=== PATIENT | female | born 1955 | race Caucasian/White ===

== ENCOUNTER → 2018-05-12 | Outpatient (CLI) | payer OTHER ==
[2018-05-12 14:33] LABS: ALT 61 U/L (9-52); AST 35 U/L (14-36); Albumin 4.5 g/dL (3.5-5.0); Alkaline Phosphatase 117 U/L (38-126); Anion Gap 11 mmol/L; Blood Urea Nitrogen 18 mg/dL (7-17); Calcium 10.3 mg/dL (8.4-10.2); Carbon Dioxide 27 mmol/L (22-30); Chloride 101 mmol/L (98-107); Glucose 81 mg/dL (74-99); Potassium 4.1 mmol/L (3.5-5.1); Sodium 139 mmol/L (137-145); Total Bilirubin 0.6 mg/dL (0.2-1.3); Total Protein 7.6 g/dL (6.3-8.2)
[2018-05-12 14:35] LABS: HCT 48.7 % (34.0-46.0); HGB 15.8 gm/dL (11.4-16.0); MCH 29.7 pg (25.0-35.0); MCHC 32.4 g/dL (31.0-37.0); MCV 91.7 fL (80.0-100.0); Mean Platelet Volume 6.3; Platelet Count 372 k/uL (150-450); RBC 5.31 m/uL (3.80-5.40); WBC 8.4 k/uL (3.8-10.6)
[2018-05-12 14:41] LABS: INR 0.9 (<1.2); Partial Thromboplastin Time 22.9 sec (22.0-30.0); Prothrombin Time 9.6 sec (9.0-12.0)
[2018-05-12 15:18] LABS: Amorphous Sediment,Urine Few /hpf; Appearance,Urine Cloudy (Clear); Bacteria,Urine Occasional /hpf; Bilirubin,Urine Negative (Negative); Blood,Urine Negative (Negative); Color,Urine Yellow; Glucose,Urine (UA) Negative (Negative); Hyaline Casts,Urine 4 /lpf (0-2); Ketones,Urine Negative (Negative); Leukocyte Esterase,Urine Large (Negative); Mucus,Urine Occasional /hpf; Nitrite,Urine Positive (Negative); Protein,Urine Negative (Negative); RBC,Urine 7 /hpf (0-5); Specific Gravity,Urine 1.018 (1.001-1.035); Squamous Epithelial Cell,Urine 14 /hpf (0-4); Urobilinogen,Urine <2.0 mg/dL (<2.0); WBC,Urine 81 /hpf (0-5)
== END | disposition home or self-care (01) ==
LOC: LABPAT 13:13
PROVIDERS: ATTEND Orthopaedic Surgery
DX: Z01.812 Encounter for preprocedural laboratory examination (principal)
CPT/HCPCS: 36415; 80053; 81001; 85027; 85610; 85730; 87070

== ENCOUNTER 2018-05-29 11:01 | Inpatient (IN) | payer OTHER ==
[~2018-05-29 11:01] MED LIST: ACETAMINOPHEN TAB 500 MG TAB PO ONE; CLINDAMYCIN 900 MG in DEXTROSE 5% IN WATER 50 ML IVPB ONE; DEXAMETHASONE SOD PHOSPHATE 10 MG/ML 1 ML VIAL IV ONE; HYDROmorphone 0.5 MG/0.5 ML SYRINGE IVP PRN; MORPHINE SULFATE 4 MG/ML SYRINGE IV PRN; ONDANSETRON 4 MG/2 ML VIAL IVP ONE; TRANEXAMIC ACID 1,000 MG in SODIUM CHLORIDE 0.9% 100 ML IVPB ONE
[2018-05-29] MEDS: MELOXICAM 7.5 MG TAB PO ONE ×2 (14:31→18:34)
[2018-05-29] MEDS: LACTATED RINGERS 1,000 ML IV SCH ×2 (14:43→18:34)
[2018-05-29] MEDS ORDERED: ONDANSETRON 4 MG/2 ML VIAL IVP ONE (14:44)
[2018-05-29] MEDS ORDERED: DEXAMETHASONE SOD PHOSPHATE 10 MG/ML 1 ML VIAL IV ONE (14:45)
[2018-05-29] MEDS ORDERED: MIDAZOLAM (PF) 2 MG/2 ML VIAL IVP ONE (15:18)
[2018-05-29] MEDS ORDERED: fentaNYL (PF) 50 MCG/ML 2 ML AMP IVP ONE (15:18)
[2018-05-29] MEDS ORDERED: MAGNESIUM HYDROXIDE 2,400 MG/10 ML CUP PO PRN (15:24)
[2018-05-29] MEDS ORDERED: NALOXONE 0.4 MG/ML 1 ML VIAL IV PRN (15:24)
[2018-05-29] MEDS ORDERED: HYDROmorphone 0.5 MG/0.5 ML SYRINGE IVP PRN ×2 (15:24)
[2018-05-29] MEDS ORDERED: HYDROcodone/APAP 5-325MG 1 EACH TAB PO PRN (15:24)
[2018-05-29] MEDS ORDERED: HYDROmorphone 1 MG/ML 1 ML SYRINGE IVP PRN (15:24)
[2018-05-29] MEDS ORDERED: ONDANSETRON 4 MG/2 ML VIAL IVP PRN (15:24)
[2018-05-29] MEDS ORDERED: NA PHOS,M-B/NA PHOS,DI-BA 133 ML ENEMA RECTAL PRN (15:24)
[2018-05-29] MEDS ORDERED: DIAZEPAM 5 MG TAB PO PRN (15:24)
[2018-05-29] MEDS ORDERED: BISACODYL 10 MG SUPP RECTAL PRN (15:24)
[2018-05-29] MEDS ORDERED: SODIUM CHLORIDE 0.9% 1,000 ML IV SCH (15:30)
[2018-05-29] MEDS ORDERED: ePHEDrine SULFATE/0.9% NACL/PF 50 MG/5 ML SYRINGE IV ONE (15:38)
[2018-05-29] MEDS ORDERED: MIDAZOLAM 2 MG/2 ML VIAL ONE (15:38)
[2018-05-29] MEDS ORDERED: PROPOFOL 10 MG/ML 20 ML VIAL IV ONE (15:38)
[2018-05-29] MEDS ORDERED: TRANEXAMIC ACID 1,000 MG/10 ML VIAL ONE (15:38)
[2018-05-29] MEDS ORDERED: SODIUM CHLORIDE 0.9% 100 ML BAG ONE (15:38)
[2018-05-29] MEDS ORDERED: ROPIVACAINE 1,100 MG, SODIUM CHLORIDE 0.9% 500 ML 330 ML MISCELLANE PRN ×2 (15:42)
--- NOTE | 2018-05-29 15:44 | P.ONQ ---
Anesthesiology Proc Note - PNB - Peripheral Nerve Block Performed Right Adductor Canal Infusion Time Out Performed: Yes Procedure Start Time: 15:18 Procedure Stop Time: 15:30 Indication: Acute Post-Operative Pain, Requested by physician (Dr Hernandez) Sedation Type: Sedate with meaningful contact maintained Preparation: Sterile Dressing Position: Supine Catheter: Indwelling Needle Types: On-Q Needle Size: 100mm (4") Needle Gauge: 20 Technique: Ultrasound (Image saved) Injectate: 0.5% Ropivacaine (see comment for volume) (30 mls) Blood Aspirated: No Pain Paresthesia on Injection Noted: No Resistance on Injection: Normal Events: Uneventful and Well Tolerated
[2018-05-29] MEDS: CLINDAMYCIN 900 MG in DEXTROSE 5% IN WATER 50 ML IVPB SCH ×4 (15:48→23:39)
[2018-05-29] MEDS ORDERED: ROPIVACAINE 246.25 MG, EPINEPHrine 0.5 MG, KETOROLAC 30 MG, cloNIDine HCL/PF 80 MCG, WA... MISCELLANE ONE ×5 (16:15)
[2018-05-29] MEDS ORDERED: LACTATED RINGERS 1,000 ML IV ONE (16:17)
--- NOTE | 2018-05-29 17:00 | P.OP ---
Date of Procedure: 05/29/18 Preoperative Diagnosis: Severe osteoarthritis right knee Postoperative Diagnosis: Severe osteoarthritis right knee Procedure(s) Performed: Right total knee arthroplasty Implants: White and Nephew Journey II CR Oxinium cruciate retaining femoral component size 5, right White & Nephew Journey right nonporous tibial baseplate size 4 White & Nephew Journey II, XLPE Deep Dished articular insert, size 11 mm, Size 3-4 right White & Nephew Journey BCS resurfacing oval patellar component, 29 mm All components were cemented using Palacos R bone cement.. The articulation is Oxinium on polyethylene. Anesthesia: spinal Surgeon: Yefri Hernandez Excel Analyst #1: Sabine Carson Estimated Blood Loss (ml): 25 Pathology: other (Bone and cartilage) Condition: stable Disposition: PACU Indications for Procedure: After failure of conservative treatment we discussed the surgical and nonsurgical treatment options at length. Patient wishes to proceed with a total knee arthroplasty. Complications specific to this procedure were discussed at length, including but not limited to infection, bleeding, stiffness, and nerve injury. Patient is aware of all these complications and informed consent was obtained Operative Findings: The operative findings are consistent with severe osteoarthritis of the right knee Description of Procedure: Patient was seen in the preoperative area consent was reviewed and operative site was marked with a skin marker. An adductor canal pain catheter was placed by anesthesia in the preoperative area. Patient was then brought to the opera ting room and given preoperative antibiotics intravenously. A spinal anesthetic was administered by the anesthesia department. A tourniquet was placed on the upper thigh and the lower extremity was prepped and draped in usual sterile fashion. A gram of transexamic acid was given. A universal timeout was then performed which confirmed the patient's name, surgical site, ALLERGIES, and consent. The lower extremity was then exsanguinated and tourniquet was inflated to 300 mmHg. A standard and anterior midline approach to the knee was performed. The skin and subcutaneous tissue was dissected down to the patellar tendon. A medial parapatellar arthrotomy was then performed. The knee was then extended, the patellar was everted, and the knee was again flexed. Anterior horns of both menisci were excised, and a release was performed to the posterior medial aspect of the knee. On gross visual inspection, there was complete loss of articular cartilage in the medial and patellofemoral joint spaces. There was also significant cartilage damage in the lateral compartment. There were multiple periarticular osteophytes which were then removed with a Ronguer. The femoral canal was then opened with the appropriate drill, and the intramedullary femoral cutting guide was then placed and set for 5 of valgus. The distal femoral cutting block was then pinned in place, and the distal femur was then cut. The cutting block was then removed and the cut was checked for flatness. Next, the sizing guide was then placed and set for 3 external rotation based off of the epicondylar axis and Whitesides line. After the femur was sized, the appropriate 4-in-1 cutting block was then pinned in place. The anterior condyles were cut without notching. The posterior and chamfer cuts were perfo rmed while protecting the collateral ligaments. The cutting block was then removed, and the femoral canal was plugged with autologous bone. Attention was then directed to the tibia. The remaining ACL was removed with a Ronguer, and the tibia was then gently subluxed forward with a large bent knee retractor. Any remaining menisci was excised. The posterior lateral corner was cauterized in order to cauterize the lateral geniculate artery. The extra medullary tibial cutting guide was then placed, set for the appropriate rotation, slope, and depth of resection. The proximal tibia cutting guide was then pinned in place. Proximal tibia was then cut and sized. Next trials were then placed with the appropriate-sized insert. The knee was able to fully extend and flex to 130 and was stable throughout all range of motion. The knee was then extended, patella everted. Patella was then measured, and then using an osteotomy guide, the patella was cut at the appropriate level. The patella was then measured and drilled and the patella trial was then placed. The knee was then taken through range of motion with the patella trial and the patella tracked normally. The knee was then extended patella trial was then removed and the patella was everted. Knee was then flexed and lug holes were drilled through the femoral trial and the femoral trial was then removed. The tibial was then exposed, and the tibial broach guide was then pinned in place after it was set for the appropriate rotation to allow for the most coverage without overhang. The tibia was then reamed and broached. The cut surfaces of bone were then irrigated with pulsatile lavage. The posterior structures were injected with the ropivacaine solution. The knee was also irrigated with Irrisept solution. The components were then opened, the cement was mixed, and the components were then cemented in place. The cement was allowed to harden with the knee in full extension. While the cement was hardening, the remaining soft tissues were then injected with a ropivacaine solution, which consisted of 246.25 mg of ropivacaine, 0.5 mg of epinephrine, 30 mg of Toradol, 80 g of clonidine, and 48.45 mL of sterile water, for a total of 100 mL of fluid injected. After the cemented hardened. The tourniquet was released, and hemostasis was obtained. A second gram of transexamic acid was given. The knee was again irrigated. The knee was again taken through range of motion and found to be stable throughout all range of motion of 0-130, and the patella tracked normally. The fascia was then closed with #2 strata fix suture. The subcutaneous tissue was closed with 3-0 Vicryl and 3-0 strata fix. Dermabond glue was used for the skin and placed with the knee in flexion. The patient was placed in a sterile silver dressing. Patient was then transferred to recovery room in stable condition. The department assistant KIKI Antonio was required due the complexity surgery and the need for a skilled surgical services coordinator. She assisted in positioning, draping, retraction, and closure of the wound.
--- NOTE | 2018-05-29 18:01 | XR ---
EXAMINATION TYPE: XR knee limited RT DATE OF EXAM: 05/29/2018 COMPARISON: NONE HISTORY: Postop knee surgery TECHNIQUE: 2 views FINDINGS: There is a right knee prosthesis. Components are in anatomic position. IMPRESSION: No complicating process seen.
[2018-05-29 19:26] VITALS: BMI 39.1
[2018-05-29] MEDS: SENNOSIDES-DOCUSATE SODIUM 1 EACH TAB PO SCH (22:11)
[2018-05-29] MEDS: ASPIRIN 325 MG TAB PO SCH (22:11)
--- NOTE | 2018-05-30 05:34 | P.PN ---
Progress Note - Text Progress Note Date: 05/30/18 62 yo female status post right total knee replacement. Patient received adductor canal catheter. Ropivacaine 0.2% at 8 mls/hr. Patient was seen this morning, sitting in bed comfortably. VAS score of 0/10, no complaints overnight. Assessment and plan: patient will be sent home with the adductor canal pump. Adequate pain control.
--- NOTE | 2018-05-30 07:29 | CONS ---
CONSULTATION DATE OF CONSULTATION: 05/29/2018 REASON FOR CONSULTATION: Medical management requested by Dr. Mackenzie. CONSULTATION: This is a pleasant 62-year-old patient of Dr. Mackenzie who has had progressive arthritis in the knees. He has tried medications, really did not help. It progressed to get worse. It was worse with activity, better with rest. Pain is pretty much localized to the knee, did not radiate. Finally decided to proceed with surgery. Today underwent right total knee arthroplasty. Postprocedure pain is well controlled. No nausea, vomiting, or dizziness. Did tolerate some supper. No chest pain or short of breath. REVIEW OF SYSTEMS: CONSTITUTIONAL: None. HEENT: None. RESPIRATORY: None. CARDIOVASCULAR: None. GASTROINTESTINAL: None. GENITOURINARY: None. MUSCULOSKELETAL: Arthritic pain in joints. DERMATOLOGICAL: None. HEMATOLOGIC: None. LYMPHATIC: None. PSYCHIATRY: None. NEUROLOGICAL: None. PAST MEDICAL HISTORY: Hypertension, primary osteoarthritis, recent UTI. PAST SURGICAL HISTORY: Tubal ligation, bilateral thumb joint replacement, left total knee. SOCIAL HISTORY: Does not smoke or drink alcohol. . Retired from factory. FAMILY HISTORY: Family history of brain cancer. HOME MEDICATIONS: 1. Whittaker-3 one tablet p.o. daily. 2. Macrobid 100 mg p.o. q.12. 3. Multivitamin 1 tablet p.o. daily. 4. Hydrochlorothiazide 50 mg p.o. daily. 5. Vitamin D2, 50,000 units on Tuesday and Tuesday. 6. Vitamin D3, 2000 units. 7. Calcium 600 mg p.o. daily. 8. Aspirin 81 mg a day. ALLERGIES: Allergies to AUGMENTIN, SULFA. PHYSICAL EXAMINATION: On examination, temperature 98.7, pulse 115, respirations 16, blood pressure 147/77, pulse ox 96% on room air; GENERAL APPEARANCE: Well built, BMI 38.7. Sitting up, comfortable. EYES: Pupils equal. Conjunctivae normal. HENT: External appearance of nose and ears normal. Oral cavity normal. NECK: JVD not raised. Mass not palpable. RESPIRATORY: Effort normal. LUNGS: Fair entry. CARDIOVASCULAR: First and second sounds normal. No edema. ABDOMEN: Soft, nontender. Liver and spleen not palpable. LYMPHATIC: No lymph node palpable in the neck or axillae. PSYCHIATRY: Alert and oriented x3. Mood and affect normal. NEUROLOGICAL: Pupils equal. Cranial nerves grossly intact. Power and sensation grossly intact. MUSCULOSKELETAL: Dressing over the right knee. evidence of OA especially in the hands. INVESTIGATIONS: Lab work from 05/12/2018 shows a white count 8.4, hemoglobin 15.8, potassium 4.1, creatinine 0.7. ASSESSMENT: 1. Right total knee arthroplasty. 2. Primary osteoarthritis. 3. Essential hypertension takes diuretics. 4. Primary osteoarthritis. 5. Obesity, body mass index 38.7. 6. Tachyarrhythmia exact type unknown. PLAN: The patient for DVT prophylaxis on aspirin. Pain control is in place. Getting some IV fluids. Will DC the same as blood pressure is tending to run a bit on the higher side. We will get an EKG to see if there is underlying arrhythmia versus sinus tachycardia. The patient states that she has had increased heart rate in the past. Care was discussed with the patient. Questions were answered. Thank you Dr. Hernandez. DANAL / JANIN: [id number] /
[2018-05-30 08:04] LABS: Basophils % (A) 0 %; Eosinophils % (A) 0 %; HCT 38.7 % (34.0-46.0); Lymphocytes # (A) 1.4 k/uL (1.0-4.8); Lymphocytes % (A) 12 %; MCH 29.8 pg (25.0-35.0); MCHC 32.4 g/dL (31.0-37.0); MCV 92.2 fL (80.0-100.0); Mean Platelet Volume 6.2; Monocytes # (A) 0.7 k/uL (0-1.0); Monocytes % (A) 6 %; Neutrophils # (A) 9.4 k/uL (1.3-7.7); Neutrophils % (A) 81 %; Platelet Count 247 k/uL (150-450); RDW 14.3 % (11.5-15.5); WBC 11.6 k/uL (3.8-10.6)
[2018-05-30 08:11] LABS: HGB 12.5 gm/dL (11.4-16.0)
[2018-05-30] MEDS: ASPIRIN 325 MG TAB PO SCH ×2 (09:05→20:02)
[2018-05-30] MEDS: MELOXICAM 7.5 MG TAB PO SCH (09:05)
--- NOTE | 2018-05-30 09:40 | P.DS ---
Providers Date of admission: 05/29/18 13:54 Expected date of discharge: 05/30/18 Attending physician: Yefri Hernandez Consults: 05/29/18 15:24 Consult Physician Routine Consulting Provider: Andrei Laws Consult Reason/Comments: medical management Do you want consulting provider notified?: Yes 05/30/18 06:00 Consult Physician Routine Consulting Provider: Rio Ace Consult Reason/Comments: Tachycardia Do you want consulting provider notified?: Yes, Notify in am Primary care physician: Elvin Mackenzie - Discharge Diagnosis(es) (1) Osteoarthritis of right knee Current Visit: Yes Status: Acute (2) S/P total knee arthroplasty Current Visit: Yes Status: Acute Hospital Course: This is a 62-year-old female with known history of degenerative arthritis of the right knee. The patient presents for evaluation. After discussion and consideration patient elects to proceed with total knee arthroplasty. The patient is seen preoperatively by Dr. Hernandez and medically cleared for surgery by their primary care physician. Patient is admitted to [facility] on 05/29/2018 for total knee arthroplasty. The procedures performed without complication or sequelae. The patient is doing well postoperatively. Labs and vital signs are stable on day of discharge. On day of discharge patient's knee incision is healing well. There is minimal erythema. There is no drainage noted at this time. There is minimal soft t issue swelling to the knee. Patient has full foot and ankle motion without difficulty or pain. Calf is soft and nontender to palpation. Neurovascular status to the right lower extremity is intact. Patient is discharged home in good condition. Opioid start talking form is reviewed and signed at patient bedside. Please see med rec for accurate list of home medications. Plan - Discharge Summary Discharge Rx Participant: No New Discharge Prescriptions: New Aspirin 325 mg PO BID #60 tab HYDROcodone/APAP 5-325MG [Jefferson 5-325] 1 - 2 tab PO Q6HR PRN #56 tab PRN Reason: Pain Sennosides [Senokot] 1 tab PO BID #60 tablet No Action Hydrochlorothiazide [Hydrodiuril] 50 mg PO DAILY Aspirin [Adult Low Dose Aspirin EC] 81 mg PO DAILY Nitrofurantoin Monohyd/M-Cryst [Macrobid] 100 mg PO Q12HR Ergocalciferol [Vitamin D2] 50,000 unit PO WESA Multivitamins, Thera [Multivitamin (formulary)] 1 tab PO DAILY Cholecalciferol (Vitamin D3) [Vitamin D3] 2,000 unit PO SUMOTUTHFR Calcium Carbonate [Calcium] 600 mg PO DAILY [place] 3 (Unknown Dose) 1 tab PO DAILY Discharge Medication List Aspirin [Adult Low Dose Aspirin EC] 81 mg PO DAILY 05/22/18 [History] Calcium Carbonate [Calcium] 600 mg PO DAILY 05/22/18 [History] Cholecalciferol (Vitamin D3) [Vitamin D3] 2,000 unit PO SUMOTUTHFR 05/22/18 [History] Ergocalciferol [Vitamin D2] 50,000 unit PO WESA 05/22/18 [History] Hydrochlorothiazide [Hydrodiuril] 50 mg PO DAILY 05/22/18 [History] Multivitamins, Thera [Multivitamin (formulary)] 1 tab PO DAILY 05/22/18 [History] Nitrofurantoin Monohyd/M-Cryst [Macrobid] 100 mg PO Q12HR 05/22/18 [History] [place] 3 (Unknown Dose) 1 tab PO DAILY 05/22/18 [History] Aspirin 325 mg PO BID #60 tab 05/30/18 [Rx] HYDROcodone/APAP 5-325MG [Jefferson 5-325] 1 - 2 tab PO Q6HR PRN #56 tab 05/30/18 [Rx] Sennosides [Senokot] 1 tab PO BID #60 tablet 05/30/18 [Rx] Follow up Appointment(s)/Referral(s): Yefri Hernandez DO [Doctor of Osteopathic Medicine] - 2 Weeks Ambulatory/Diagnostic Orders: Continuous Passive Motion (CPM) Machine [DME.AMB1] Time Frame: 3 Weeks, Location: None Selected Activity/Diet/Wound Care/Special Instructions: Weightbearing as tolerated with a walker. CPM 5-6h daily. Leave dressing intact. May be removed by home care nurse or by patient in 10 days. May shower with dressing on. Please follow up with [facility] and call with any questions or concerns, . Discharge Disposition: HOME WITH HOME HEALTH SERVICES
[2018-05-30] MEDS: LACTATED RINGERS 1,000 ML IV SCH (14:57)
[2018-05-30] MEDS: HYDROcodone/APAP 5-325MG 1 EACH TAB PO PRN (17:22)
[2018-05-30] MEDS: SENNOSIDES-DOCUSATE SODIUM 1 EACH TAB PO SCH (20:01)
[2018-05-31 04:05] VITALS: RESP 14
[2018-05-31] MEDS: HYDROcodone/APAP 5-325MG 1 EACH TAB PO PRN (04:31)
[2018-05-31] MEDS: hydrOXYzine PAMOATE 25 MG CAP PO PRN ×2 (04:32→10:11)
[2018-05-31] MEDS: ASPIRIN 325 MG TAB PO SCH (07:24)
[2018-05-31] MEDS: MELOXICAM 7.5 MG TAB PO SCH (07:24)
--- NOTE | 2018-05-31 07:48 | PN ---
PROGRESS NOTE DATE OF SERVICE: 05/30/2018 PRESENTING COMPLAINT: Knee surgery. INTERVAL HISTORY: Patient is status post right total knee arthroplasty. Pain is better controlled. Did tolerate some therapy. No nausea, vomiting. Did tolerate some diet. Did work with therapy. REVIEW OF SYSTEMS: Done for constitutional, cardiovascular, GI, pulmonary; relevant findings above. CURRENT MEDICATIONS: Current medications are reviewed. PHYSICAL EXAMINATION: On examination, temperature 98.7 pulse 98, respirations 12, blood pressure 128/73, pulse ox 96% on room air. GENERAL APPEARANCE: Sitting up comfortable. EYES: Pupils equal. Conjunctivae normal. NECK: JVD not raised. Mass not palpable. RESPIRATORY: Effort . Lungs are clear. CARDIOVASCULAR: First and second sounds normal. No edema. ABDOMEN: Soft, nontender. Liver and spleen not palpable. PSYCHIATRY: Alert and oriented x3. Mood and affect normal. INVESTIGATIONS: White count 11.6, hemoglobin 12.5. ASSESSMENT: 1. Right total knee arthroplasty. 2. Primary osteoarthritis. 3. Essential hypertension. 4. Obesity, body mass index 38.7. 5. sinus tachycardia, chronic, cause undetermined. PLAN: Continue current medication and treatment plan. Care was discussed with the patient and family at the bedside. MMODL / IJN: [id number] /
[2018-05-31 08:38] VITALS: BP 120/71; PULSE 105; TEMP 98.3
[2018-05-31] MEDS ORDERED: HYDROcodone/APAP 7.5-325MG 1 EACH TAB PO PRN ×2 (09:06)
[2018-05-31] MEDS ORDERED: HYDROcodone/APAP 5-325MG 1 EACH TAB PO PRN ×2 (09:23→09:24)
[2018-05-31] MEDS ORDERED: KETOROLAC 30 MG/ML 1 ML VIAL IVP SCH (12:00)
--- NOTE | 2018-05-31 13:18 | CONS ---
CONSULTATION DATE OF SERVICE: 05/30/2018 Mrs. Hagen is a 62-year-old female who is seen for cardiac evaluation. This patient's medical records reviewed. She is a 62-year-old female who underwent knee surgery. During the night, patient was noticed to have sinus tachycardia. Patient is otherwise feeling well. She denies any shortness of breath or chest discomfort. The patient's hemoglobin has remained stable and no temperature is noted. The patient gives a history that she has a tendency to run the slightly higher rate. The patient's heart rate this morning was in the range of 100 to 110. PAST MEDICAL HISTORY: Past medical history includes history of hypertension. HOME MEDICATIONS: Home medications include the Macrobid, omega-3, and aspirin. PHYSICAL EXAMINATION: Physical examination at present reveals a 62-year-old female who does not appear to be in any acute distress. Patient's heart rate is 100 per minute. Head/ENT examination is negative. Neck is supple. There is no increase in jugular venous pressure. Both the carotid pulses are felt. There is no bruit. Chest is symmetrical. HEART: The PMI is not felt. First and second heart sounds are normal. Lungs are clinically clear to auscultation and percussion. Abdomen is negative. EXTREMITIES: Peripheral pulsations are 2+. EKG shows normal sinus rhythm with sinus tachycardia. Patient's hemoglobin is 12.5. FINAL IMPRESSION: This patient has evidence of sinus tachycardia, the exact etiology undetermined. Patient is not in any acute respiratory distress. Her hemoglobin is stable and patient is afebrile. Possibly it could be mild hypovolemia. We will recommend to continue the IV fluids at 100 mL/hour. Echo and Doppler study will be done. MMODL / IJN: [id number] /
--- NOTE | 2018-06-01 00:12 | PN ---
PROGRESS NOTE DATE OF SERVICE: 05/31/2018 PRESENTING COMPLAINT: Knee surgery. INTERVAL HISTORY: Patient is status post right knee arthroplasty, comfortable. Sitting up, tolerating a diet. Did work with therapy. No new issues. Seen by Cardiology. REVIEW OF SYSTEMS: Done for constitutional, cardiovascular, GI, pulmonary; relevant findings as above. CURRENT MEDICATIONS: Reviewed. PHYSICAL EXAMINATION: VITAL SIGNS: Temperature 98.3, pulse 105, respiration 14, blood pressure 120/71, pulse ox 92 percent on room. GENERAL APPEARANCE: Lying in bed, comfortable. EYES: Pupils are equal. Conjunctivae normal. NECK: JVD not raised. Mass not palpable. RESPIRATORY: Effort normal. LUNGS: Are clear. CARDIOVASCULAR: 1st and 2nd sounds normal. No edema. ABDOMEN: Soft, nontender. Liver and spleen not palpable. PSYCHIATRY: Alert and oriented x3. Mood and affect normal. INVESTIGATIONS: No blood work from today. ASSESSMENT: 1. Right total knee arthroplasty. 2. Primary osteoarthritis. 3. Essential hypertension. 4. Obesity, BMI 38.7. 5. Chronic sinus tachycardia, cause undetermined. PLAN: Patient is seen by Cardiology. Other medication and treatment plan to continue. MMODL / IJN: [id number] /
== END 2018-05-31 13:43 | disposition home health service (06) | DRG 470 ==
LOC: 2ORMAIN 13:54 → 4SSUR 17:32
PROVIDERS: ADMIT Orthopaedic Surgery; ATTEND Orthopaedic Surgery
PROC: 0SRC069 Replacement of Right Knee Joint with Oxidized Zirconium on Polyethylene Synthetic Substitute, Cemented, Open Approach (ICD-10-PCS; principal; 2018-05-29 16:15)
DX: M17.0 Bilateral primary osteoarthritis of knee (principal); I10 Essential (primary) hypertension; E66.9 Obesity, unspecified; Z68.38 Body mass index [BMI] 38.0-38.9, adult; R00.0 Tachycardia, unspecified; Z79.82 Long term (current) use of aspirin; Z79.899 Other long term (current) drug therapy; Z98.51 Tubal ligation status; Z96.652 Presence of left artificial knee joint; Z96.698 Presence of other orthopedic joint implants; Z87.440 Personal history of urinary (tract) infections; Z88.2 Allergy status to sulfonamides; Z80.8 Family history of malignant neoplasm of other organs or systems; Z83.3 Family history of diabetes mellitus; Z82.49 Family history of ischemic heart disease and other diseases of the circulatory system
CPT/HCPCS: 84443; 85025; 88300; 93005

== ENCOUNTER → 2020-11-07 | Outpatient (CLI) | payer MEDICARE ==
[2020-11-07 09:27] LABS: HCT 47.4 % (34.0-46.0); HGB 16.1 gm/dL (11.4-16.0); MCH 32.8 pg (25.0-35.0); MCHC 33.9 g/dL (31.0-37.0); MCV 96.8 fL (80.0-100.0); Mean Platelet Volume 6.7; Platelet Count 293 k/uL (150-450); RDW 13.6 % (11.5-15.5); WBC 7.9 k/uL (3.8-10.6)
[2020-11-07 09:33] LABS: Appearance,Urine Cloudy (Clear); Bacteria,Urine Moderate /hpf; Bilirubin,Urine Negative (Negative); Blood,Urine Negative (Negative); Color,Urine Yellow; Glucose,Urine (UA) Negative (Negative); Hyaline Casts,Urine 1 /lpf (0-2); Ketones,Urine Negative (Negative); Leukocyte Esterase,Urine Large (Negative); Mucus,Urine Occasional /hpf; Nitrite,Urine Positive (Negative); PH, Urine 5.5 (5.0-8.0); Protein,Urine Negative (Negative); RBC,Urine 2 /hpf (0-5); Specific Gravity,Urine 1.017 (1.001-1.035); Squamous Epithelial Cell,Urine 3 /hpf (0-4); Urobilinogen,Urine <2.0 mg/dL (<2.0); WBC,Urine 27 /hpf (0-5)
[2020-11-07 09:34] LABS: ALT 28 U/L (4-34); AST 27 U/L (14-36); African American GFR (CKD) >90 (>60 ml/min/1.73 sqM); Albumin 4.5 g/dL (3.5-5.0); Alkaline Phosphatase 108 U/L (38-126); Anion Gap 10 mmol/L; Blood Urea Nitrogen 21 mg/dL (7-17); Calcium 9.7 mg/dL (8.4-10.2); Carbon Dioxide 27 mmol/L (22-30); Chloride 104 mmol/L (98-107); Glucose 106 mg/dL (74-99); Non-African American GFR(CKD) >90 (>60 ml/min/1.73 sqM); Potassium 3.9 mmol/L (3.5-5.1); Sodium 141 mmol/L (137-145); Total Bilirubin 0.6 mg/dL (0.2-1.3); Total Protein 7.1 g/dL (6.3-8.2)
[2020-11-07 09:46] LABS: INR 0.9 (<1.2); Partial Thromboplastin Time 22.2 sec (22.0-30.0); Prothrombin Time 9.8 sec (9.0-12.0)
== END | disposition home or self-care (01) ==
LOC: LABPAT 08:49
PROVIDERS: ATTEND Orthopaedic Surgery
DX: Z01.812 Encounter for preprocedural laboratory examination (principal)
CPT/HCPCS: 36415; 80053; 81001; 85027; 85610; 85730; 87070

== ENCOUNTER 2020-11-18 05:40 | Day surgery (SDC) | payer MEDICARE, OTHER ==
[2020-11-11 11:42] VITALS: BMI 35.5
[~2020-11-18 05:40] MED LIST changes: -ACETAMINOPHEN TAB 500 MG TAB PO ONE; +ACETAMINOPHEN TAB 500 MG TAB PO PRN; -CLINDAMYCIN 900 MG in DEXTROSE 5% IN WATER 50 ML IVPB ONE; -DEXAMETHASONE SOD PHOSPHATE 10 MG/ML 1 ML VIAL IV ONE; +GABAPENTIN 300 MG CAP PO PRN; -HYDROmorphone 0.5 MG/0.5 ML SYRINGE IVP PRN; +LIDOCAINE 1% (10MG/ML) FOR IV START INTRADERMA PRN; +MELOXICAM 7.5 MG TAB PO PRN; -MORPHINE SULFATE 4 MG/ML SYRINGE IV PRN; -TRANEXAMIC ACID 1,000 MG in SODIUM CHLORIDE 0.9% 100 ML IVPB ONE; +TRANEXAMIC ACID 1,000 MG in SODIUM CHLORIDE 0.9% 100 ML IVPB PRN; +VANCOMYCIN 1,500 MG in SODIUM CHLORIDE 0.9% 250 ML IVPB PRN
[2020-11-18] MEDS ORDERED: DEXAMETHASONE SOD PHOSPHATE 4 MG/ML 1 ML VIAL IVP ONE (06:21)
[2020-11-18] MEDS: LACTATED RINGERS 1,000 ML IV SCH ×2 (06:21→11:15)
[2020-11-18] MEDS ORDERED: SUCCINYLCHOLINE CHLORIDE 100 MG/5 ML SYR IV ONE (06:52)
[2020-11-18] MEDS ORDERED: SODIUM CHLORIDE 0.9% 100 ML BAG ONE (06:52)
[2020-11-18] MEDS ORDERED: PHENYLEPHRINE-0.9% NACL SYG 1,000 MCG/10 ML SYRINGE ONE (06:52)
[2020-11-18] MEDS ORDERED: GLYCOPYRROLATE 0.2 MG/ML 2 ML VIAL ONE (06:52)
[2020-11-18] MEDS ORDERED: MIDAZOLAM 2 MG/2 ML VIAL ONE (06:52)
[2020-11-18] MEDS ORDERED: PROPOFOL 10 MG/ML 20 ML VIAL IV ONE (06:52)
[2020-11-18] MEDS ORDERED: HEPARIN SODIUM,PORCINE 10,000 UNIT/ML 1 ML VIAL ONE (06:52)
[2020-11-18] MEDS ORDERED: ePHEDrine SULFATE/0.9% NACL/PF 50 MG/5 ML SYRINGE IV ONE (06:52)
[2020-11-18] MEDS ORDERED: fentaNYL (PF) 50 MCG/ML 2 ML AMP ONE (06:52)
[2020-11-18] MEDS ORDERED: HYDROmorphone (PF) 1 MG/ML ONE (06:52)
[2020-11-18] MEDS ORDERED: TRANEXAMIC ACID 1,000 MG/10 ML VIAL ONE (06:52)
[2020-11-18] MEDS ORDERED: SODIUM CHLORIDE 0.9% IRRIG 1,000 ML BTL IRRIGATION ONE (06:52)
[2020-11-18] MEDS ORDERED: LIDOCAINE 1% INJ 10MG/ML (20 ML MDV) ONE (06:52)
[2020-11-18] MEDS ORDERED: ceFAZolin 1,000 MG in SODIUM CHLORIDE 0.9% 1,000 ML IRRIGATION ONE (07:24)
[2020-11-18] MEDS: ROPIVACAINE/EPI/CLONIDINE/KET 50 ML SYRINGE MISCELLANE PRN ×2 (07:31→08:10)
[2020-11-18] MEDS ORDERED: LACTATED RINGERS 1,000 ML IV ONE (07:48)
--- NOTE | 2020-11-18 08:29 | P.OP ---
Date of Procedure: 11/18/20 Preoperative Diagnosis: Severe osteoarthritis left hip Postoperative Diagnosis: Severe osteoarthritis left hip Procedure(s) Performed: Left total hip arthroplasty with direct anterior approach Implants: [employer] Polarstem standard size 3 [employer] R3, 3 hole hemispherical acetabular shell, 52 mm [employer] Reflection 6.5 mm cancellus screw, 20 mm 2 [employer] R3, XLPE 20 acetabular liner [employer]hew Oxinium femoral head 36 m, +0 All components were press-fit. The articulation is Oxinium on polyethylene. Anesthesia: GETA Surgeon: Yefri Hernandez Calculating Machine Mechanic #1: Sabine Carson Estimated Blood Loss (ml): 120 (65 mL returned with Cell Saver) Pathology: other (Femoral head) Condition: stable Disposition: PACU Indications for Procedure: After failure of conservative treatment we discussed the surgical and nonsurgical treatment options at length. Patient wishes to proceed with a total hip arthroplasty with a direct anterior approach. Complications specific to this procedure were discussed at length, including but not limited to infection, leg length discrepancy, dislocation, nerve injury, and fracture. Covid-19 was also discussed at length with the patient, and they are aware of the current policies and procedures. The patient was given the option of delaying surgery, but they elect to proceed knowing these risks. Patient is aware of all these complications and informed consent was obtained Operative Findings: The operative findings are consistent with severe osteoarthritis of the left hip Description of Procedure: Patient was seen and evaluated in the preoperative area and the consent was reviewed. The operative site was marked with a skin marker. The patient was then brought to the operating room and given preoperative antibiotics intravenously. 1 g of Tranexamic acid was also given intravenously. A general anesthetic was administered by the anesthesia department. The patient was then placed on the [place] table with the bony prominences well-padded. The hip area was then prepped with a ChloraPrep solution and draped in the usual sterile fashion. A universal timeout was then performed, which confirmed the patient's name, surgical site, ALLERGIES, and procedure being performed on the consent. Next the incision site was located at 1 cm distal to the anterior superior iliac spine along the flexion crease of the hip. The skin and subcutaneous tissues were sharply incised. Incision was carefully dissected down to the fascia overlying the tensor fascia kristi muscle. This fascia was then incised in line with the incision. Care was taken to stay laterally in order to avoid injuring the lateral femoral cutaneous nerve. Next, using blunt finger dissection, the tensor fascia kristi muscle was dissected off its investing fascia. The muscle was then carefully retracted laterally with a cobra retractor over the lateral neck of the femur. Next, the circumflex vessels were identified and cauterized using the AquaMantis device. The anterior hip capsule was then exposed. The capsule was then opened and an inverted T fashion. Cobra retractors were then placed intracapsularly. The retractors were maintained intracapsular throughout the procedure. The proximal femur was then visualized. A small amount of traction was placed on the leg. The femoral neck was then osteotomized appropriate level above the lesser trochanter. A small wedge of bone was then removed from the remaining femoral head. Next, using a corkscrew the femoral head was removed from the acetabulum. On gross visual inspection, the femoral head had complete loss of articular cartilage and multiple periarticular osteophytes. The femoral head was then measured. Attention was then turned to the acetabulum. The acetabulum was exposed and any remaining labrum was excised. Sequential reaming of the acetabulum was performed using fluoroscopic guidance until there was a good bed of bleeding cancellus bone. When the appropriate size was reached, a trial was then placed. The position and fit of the trial was checked with fluoroscopy. The trial was then removed. Then, using fluoroscopic guidance, the final implant was impacted at 20 of anteversion and 40 of abduction, and fully seated in the acetabulum. 2 screws were then placed in the acetabulum. Again fluoroscopy was used to check position of the screws. Next, the liner was then impacted, with a 20 elevated liner located in the anterior superior quadrant. Component locking was confirmed. Attention was then directed to the femur. With the aid of the [place] table, the femur was externally rotated to approximately 130, extended, and adducted under the opposite leg. A side hook was then placed under the proximal femur, and the side hook elevator was used to elevate the proximal femur while releasing the capsule. Retractors were then placed. A capsular release was performed, as well as a release of the conjoined tendon, which afforded excellent visualization of the proximal femur. Next, a box osteotome was used to lateralize the proximal femur. A flask handler was then used to locate the femoral canal. Sequential broaching was then performed with appropriate size which afforded excellent fixation in the proximal femur. A trial was then placed with appropriate head and neck, and the hip was gently reduced with the aid of the [place] table. Fluoroscopy was then used to check position of the components, as well as to ensure equal leg lengths. The hip was then gently dislocated and the trials were then removed. Final implants were then impacted and the hip was again reduced. Final fluoroscopic x-rays confirmed that the components were in anatomic position, as well as equal leg lengths. The hip was also taken through range of motion, and found to be stable. The hip was then copiously irrigated with antibiotic solution with pulsatile lavage. The hip was then irrigated with Irrisept solution. The soft tissues were then injected with a ropivacaine solution, which consisted of 246.25 mg of ropivacaine, 0.5 mg of epinephrine, 30 mg of Toradol, 80 g of clonidine, and 48.45 mL of sterile water, for a total of 100 mL of fluid injected. A second dose of 1 g of Tranexamic acid was also given intravenously. Any blood collected by Cell Saver was then returned to the patient at this time. The fascia was then closed with 2-0 strata fix suture. The subcutaneous tissue was closed with 3-0 Vicryl. The subcuticular tissue was closed with 3-0 strata fix suture. The skin was then closed with Exofin skin glue. After the glue and dried, and Optifoam silver impregnated dressing was applied. The patient was then transferred to the recovery room in stable condition. The psychiatric assistant KIKI Antonio was required due to the complexity of surgery, and the need for skilled surgical orderly for positioning, draping, exposure, retraction, and closure of the wound.
[2020-11-18 08:46] VITALS: TEMP 96.4
[2020-11-18] MEDS ORDERED: SODIUM CHLORIDE 0.9% 1,000 ML IV SCH (09:00)
[2020-11-18] MEDS ORDERED: HYDROmorphone 0.2 MG/1 ML SYRINGE IVP PRN (09:00)
[2020-11-18] MEDS ORDERED: ONDANSETRON 4 MG/2 ML VIAL IVP PRN (09:00)
[2020-11-18] MEDS ORDERED: HYDROmorphone 0.5 MG/0.5 ML SYRINGE IVP PRN ×2 (09:00)
[2020-11-18] MEDS ORDERED: NALOXONE 0.4 MG/ML 1 ML VIAL IV PRN (09:00)
[2020-11-18] MEDS ORDERED: CLINDAMYCIN 900 MG in DEXTROSE 5% IN WATER 50 ML IVPB STA ×2 (09:03)
--- NOTE | 2020-11-18 09:06 | XR ---
EXAMINATION TYPE: XR Hip Limited LT DATE OF EXAM: 11/18/2020 CLINICAL HISTORY: Left hip pain and osteoarthritis. TECHNIQUE: Single AP portable view of left hip is obtained immediately postoperatively. COMPARISON: None. FINDINGS: Metallic hardware from left hip arthroplasty is seen and appears satisfactory in alignment and position. There is evidence of recent surgery with subcutaneous gas noted laterally. IMPRESSION: Metallic hardware from left hip arthroplasty is satisfactory in position.
[2020-11-18] MEDS ORDERED: KETOROLAC 15 MG/ML 1 ML VIAL ONE (09:07)
--- NOTE | 2020-11-18 09:07 | FL ---
EXAMINATION TYPE: FL guidance operating room, XR Hip Limited LT DATE OF EXAM: 11/18/2020 CLINICAL HISTORY: Left hip pain and osteoarthritis. TECHNIQUE: Fluoroscopy. Limited intraoperative views left hip. COMPARISON: None. FINDINGS: Fluoroscopic guidance was provided during left hip replacement procedure performed by Dr. Hernandez. A total of 20 seconds of fluoroscopic time was utilized during the procedure and 2 spot im ages was acquired. Intraoperative images acquired show metallic hardware that is satisfactory in position on frontal pro jection. IMPRESSION: As Above.
[2020-11-18] MEDS ORDERED: KETOROLAC 15 MG/ML 1 ML VIAL IVP ONE (09:15)
[2020-11-18] MEDS ORDERED: HYDROmorphone 0.5 MG/0.5 ML SYRINGE IVP ONE ×2 (09:17→09:30)
[2020-11-18 10:04] VITALS: RESP 16
[2020-11-18 14:08] VITALS: BP 109/61; PULSE 71
== END 2020-11-18 14:08 | disposition home health service (06) ==
LOC: OR 05:40
PROVIDERS: ATTEND Orthopaedic Surgery
DX: M16.12 Unilateral primary osteoarthritis, left hip (principal); I10 Essential (primary) hypertension; Z79.82 Long term (current) use of aspirin; Z96.653 Presence of artificial knee joint, bilateral; Z79.899 Other long term (current) drug therapy; Z88.0 Allergy status to penicillin; Z88.2 Allergy status to sulfonamides; E78.5 Hyperlipidemia, unspecified
CPT/HCPCS: 97110; 97161; 86891; 86900; 86901; 86850; 88300; 73501; 27130; P9022; C1776; J2250; J3370; J1644; J1100; J2405; J0690; J2001; J3010; J1170 ×2; J1885; J2370; J0330; J2704